=== PATIENT | male | born 1980 | race Caucasian/White ===

== ENCOUNTER 2020-12-18 14:30 | Inpatient (IN) | payer MEDICARE, MEDICAID ==
[~2020-12-18] VITALS: Ht 185.4 cm; Wt 156.5 kg
[2020-12-18] MEDS ORDERED: LASIX40 MG PO (14:41)
[2020-12-18] MEDS ORDERED: COREG6.25 MG PO (14:41)
[2020-12-18] MEDS ORDERED: TENORMIN50 MG PO (14:41)
[2020-12-18] MEDS ORDERED: HYDROCODON-ACE1 EA10 PO (14:42)
[2020-12-18] MEDS ORDERED: GABAPENTIN300 MG PO (14:42)
[2020-12-18] MEDS ORDERED: LANTUS INS100 UNITS/ SC (14:43)
[2020-12-18] MEDS ORDERED: ELIQUIS5 MG PO (14:43)
[2020-12-18] MEDS ORDERED: NOVOLOG100 UNIT/1 SC (14:43)
[2020-12-18] MEDS ORDERED: CYCLOBENZAPRINE10 MG PO (14:44)
[2020-12-18] MEDS ORDERED: GLIPIZIDE10 MG PO (14:44)
[2020-12-18 15:04] LABS: BASOPHILS 0.2 % (0-2); EOSINOPHILS 1.6 % (0-7); HEMATOCRIT 39.1 % (42.0-54.0); HEMOGLOBIN 13.1 g/dL (13.5-17.5); IMMATURE GRANULOCYTES 0.4 % (0-5); LYMPHOCYTE ABS# 1.61 10x3/uL (1.32-3.57); LYMPHOCYTES 28.2 % (15-50); MCH 27.6 pg (26.0-34.0); MCHC 33.5 g/dL (31.0-37.0); MCV 82.3 fL (80.0-100.0); MEAN PLATELET VOLUME 10.2 fL (7.4-10.4); MONOCYTES 5.3 % (2-11); NEUTROPHIL ABS# 3.68 10x3/uL (1.78-5.38); NEUTROPHILS 64.3 % (40-80); PLATELET COUNT 146 10x3/uL (130-400); RBC 4.75 10x6/uL (4.20-6.10); RDW 16.3 % (11.5-14.5); WBC 5.7 10x3/uL (4.8-10.8)
[2020-12-18 15:28] LABS: ALBUMIN 3.4 g/dL (3.4-5.0); ALKALINE PHOSPHATASE 93 U/L (30-120); ALT (SGPT) 26 U/L (10-68); BILIRUBIN - TOTAL 1.08 mg/dL (0.2-1.3); CALC OSMOLALITY 279 mosm/kg (275-300); CALCIUM 8.9 mg/dL (8.5-10.1); CARBON DIOXIDE 26.2 mmol/L (21.0-32.0); CHLORIDE - SERUM 99 mmol/L (98-107); CKMB 1.3 U/L (0.0-3.6); CREATINE KINASE 33 UL (21-232); CREATININE - SERUM 0.8 mg/dL (0.6-1.3); GLUCOSE 395 mg/dL (74-106); MAGNESIUM - SERUM 1.8 mg/dL (1.8-2.4); POTASSIUM - SERUM 3.6 mmol/L (3.5-5.1); PRO BNP 347 pg/mL (0-125); PROTEIN - SERUM 7.5 g/dL (6.4-8.2); SODIUM 132 mmol/L (136-145); UREA NITROGEN 9 mg/dL (7-18); eGFR NON AFRICAN AMERICAN > 90 mL/min (90-120)
[2020-12-18 15:35] LABS: TROPONIN-I < 0.017 ng/mL (0.000-0.060)
[2020-12-18 15:36] LABS: APTT 24.2 SECONDS (22.8-39.4); D-DIMER-QUANTITATIVE 0.35 ug/mLFEU (0.20-0.54); INR 1.15 (0.85-1.17); PROTIME 13.6 SECONDS (11.6-15.0)
[2020-12-18 17:28] VITALS: BP 159/75
[2020-12-18 18:15] VITALS: BP 153/72
--- NOTE | 2020-12-18 18:18 | NUR ---
PT ARRIVED AT THIS TIME, AMBULTED TO BED WITHOUT ASSISTANCE. PT AWAKE AND ALERT, PAIN REPORTED TO CHEST. VS OBTAINED. PT ANSWERS QUESTIONS APPROP. NURSE CALLED PHARMACY FOR NITRO SUBLING.
[2020-12-18 18:26] VITALS: BP 175/91
[2020-12-18 21:13] LABS: CKMB 0.5 U/L (0.0-3.6); CREATINE KINASE 27 UL (21-232); TROPONIN-I < 0.017 ng/mL (0.000-0.060)
[2020-12-18 22:37] VITALS: BP 155/76
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
[2020-12-18 23:21] VITALS: BP 175/91; BMI 45.6
[2020-12-19] MEDS ORDERED: NEURONTIN 300300 MG PO (01:58)
[2020-12-19 03:00] VITALS: BP 154/68
[2020-12-19 04:39] LABS: BASOPHILS 0 % (0-2); EOSINOPHILS 1.9 % (0-7); HEMATOCRIT 39.5 % (42.0-54.0); IMMATURE GRANULOCYTES 0.1 % (0-5); LYMPHOCYTES 24.4 % (15-50); MCH 27.5 pg (26.0-34.0); MCHC 32.9 g/dL (31.0-37.0); MCV 83.5 fL (80.0-100.0); MEAN PLATELET VOLUME 11.3 fL (7.4-10.4); MONOCYTES 6.9 % (2-11); NEUTROPHIL ABS# 4.64 10x3/uL (1.78-5.38); NEUTROPHILS 66.7 % (40-80); PLATELET COUNT 176 10x3/uL (130-400); RBC 4.73 10x6/uL (4.20-6.10); RDW 16.4 % (11.5-14.5)
[2020-12-19 05:04] LABS: ALBUMIN 3.4 g/dL (3.4-5.0); ALKALINE PHOSPHATASE 93 U/L (30-120); ALT (SGPT) 30 U/L (10-68); BILIRUBIN - TOTAL 1.24 mg/dL (0.2-1.3); CALC OSMOLALITY 276 mosm/kg (275-300); CALCIUM 8.6 mg/dL (8.5-10.1); CARBON DIOXIDE 26.9 mmol/L (21.0-32.0); CHLORIDE - SERUM 100 mmol/L (98-107); CHOL - HDL RATIO 3.5 ratio (2.3-4.9); CHOLESTEROL, TOTAL 111 mg/dL (0-200); CKMB 0.6 U/L (0.0-3.6); CREATINE KINASE 23 UL (21-232); CREATININE - SERUM 0.6 mg/dL (0.6-1.3); GLUCOSE 230 mg/dL (74-106); HDL CHOLESTEROL 32 mg/dL (32-96); LDL CHOLESTEROL 39 mg/dL (0-100); LDL-HDL RATIO 1.2 ratio (1.5-3.5); MAGNESIUM - SERUM 1.8 mg/dL (1.8-2.4); PHOSPHOROUS 3.4 mg/dL (2.5-4.9); POTASSIUM - SERUM 3.3 mmol/L (3.5-5.1); PROTEIN - SERUM 7.3 g/dL (6.4-8.2); SODIUM 136 mmol/L (136-145); THYROID STIMULATING HORMONE 1.97 uIU/mL (0.36-3.74); TRIGLYCERIDE 202 mg/dL (30-200); TROPONIN-I < 0.017 ng/mL (0.000-0.060); UREA NITROGEN 7 mg/dL (7-18); eGFR NON AFRICAN AMERICAN > 90 mL/min (90-120)
[2020-12-19 07:56] VITALS: BP 165/85
[2020-12-19 10:27] LABS: CKMB 0.3 U/L (0.0-3.6); CREATINE KINASE 23 UL (21-232); TROPONIN-I < 0.017 ng/mL (0.000-0.060)
[2020-12-19 11:23] VITALS: BP 152/80
[2020-12-19 13:27] VITALS: Ht 185.4 cm; Wt 156.5 kg
[2020-12-19 15:28] VITALS: BP 154/86
[2020-12-19 19:11] VITALS: BP 149/76
--- NOTE | 2020-12-19 19:30 | NUR ---
PT IN BED, AAO X 3, RESP EVEN AND UNLABORED, NO DISTRESS NOTED, CL IN REACH, SR UP X 2.
--- NOTE | 2020-12-20 03:20 | NUR ---
I have reviewed this patient and I concur with the Shift Assessment completed by the Licensed Practical Nurse today this shift.
[2020-12-20 03:46] VITALS: BP 144/57
[2020-12-20 05:03] LABS: BASOPHILS 0.2 % (0-2); EOSINOPHILS 1.7 % (0-7); HEMATOCRIT 37.8 % (42.0-54.0); IMMATURE GRANULOCYTES 0.2 % (0-5); LYMPHOCYTE ABS# 1.43 10x3/uL (1.32-3.57); MCH 26.7 pg (26.0-34.0); MCHC 31.7 g/dL (31.0-37.0); MONOCYTES 6.9 % (2-11); NEUTROPHIL ABS# 4.01 10x3/uL (1.78-5.38); PLATELET COUNT 177 10x3/uL (130-400); RDW 16.6 % (11.5-14.5)
[2020-12-20 05:20] LABS: CALCIUM 8.4 mg/dL (8.5-10.1); CHLORIDE - SERUM 99 mmol/L (98-107); CREATININE - SERUM 0.7 mg/dL (0.6-1.3); PHOSPHOROUS 3.9 mg/dL (2.5-4.9); SODIUM 136 mmol/L (136-145); UREA NITROGEN 8 mg/dL (7-18); eGFR NON AFRICAN AMERICAN > 90 mL/min (90-120)
[2020-12-20 05:22] LABS: CALC OSMOLALITY 280 mosm/kg (275-300); GLUCOSE 293 mg/dL (74-106); POTASSIUM - SERUM 3.9 mmol/L (3.5-5.1)
--- NOTE | 2020-12-20 07:30 | NUR ---
PT RECEIVED AWAKE AND ALERT SITTING ON SIDE OF BED. COMPLAINTS OF PAIN TO CHEST. MEDS GIVEN.
[2020-12-20 07:47] VITALS: BP 155/78
[2020-12-20] MEDS ORDERED: PROTONIX40 MG PO (11:10)
[2020-12-20] MEDS ORDERED: CARAFATE1 G PO (11:10)
[2020-12-20 12:14] VITALS: BP 133/62
--- NOTE | 2020-12-20 14:13 | NUR ---
DRESSING APPLIED TO BOTTOM OF RIGHT FOOT AT PT REQUEST. AREA OF SCAB THAT SOMETIMES BLEEDS.
--- NOTE | 2020-12-20 15:23 | NUR ---
PT'S DISCHARGE INSTRUCTIONS REVIEWED AND SIGNED. IV OUT AND TELEMETRY REMOVED.
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
--- NOTE | 2020-12-22 14:33 | EC ---
PATIENT:SULEMA FELIPE DATE OF SERVICE: 12/19/20 SEX: M MEDICAL RECORD: [id number] DATE OF : 78 LOCATION:D.M2 D.211 AGE OF PATIENT: 40 ADMISSION DATE: 12/19/20 REFERRING PHYSICIAN: INTERPRETING PHYSICIAN: SEBASTIAN BETTS MD ECHOCARDIOGRAM REPORT ECHO CHARGES 4 ECHO COMPLETE Date: 12/19/20 CLINICAL DIAGNOSIS: EVALUATE CHF, CARDIOMYOPATHY ECHOCARDIOGRAPHIC MEASUREMENTS (adult normal given) AC root (d.<3.7cm) 3.9 cm LV Septum d (<1.2 cm> 1.3 cm Valve Excursion 1.9 cm LV Septum (systole) 1.7 cm Left Atria (s.<4.0cm> 3.8 cm LVPW d(<1.2cm) 1.7 cm RV (d.<2.3cm) 3.1 cm LVPW (sytole) 2.3 cm LV diastole(<5.6CM) 7.4 cm MV E-F(>70mm/sec) cm LV systole 5.6 cm LVOT Diameter 2.3 cm MV exc.(>10mm) 1.2 cm Est.ejection fraction (50-75%) % DOPPLER: LVIT cm/sec A 62 cm/sec E 66 cm/sec LA cm/sec RVSP 27 mmHg LVOT 91 cm/sec AOP1/2T m/s Asc. Ao 168 cm/sec RVOT 78 cm/sec RA cm/sec PA 96 cm/sec AV Gradient Peak 11.3 mmHg AV Mean 8.4 mmHg AV Area 1.5 cm MV Gradient Peak 3.2 mmHg MV Mean 1.6 mmHg MV Area cm COMMENTS: Tafe Registrar: Vazquez MEDEL Water Attendant: 2 Dr. Lyon TAPE# Pericardial Effusion N DATE OF SERVICE: CLINICAL INDICATION: CHF. INTERPRETATION: Technically difficult study, overall mild global LV contractile dysfunction, ejection fraction approximately 45%. Left atrial chamber appears normal. Right atrium and right ventricular chamber size and function appears normal. Aortic valve not well visualized, but appears normal. No aortic regurgitation or stenosis. Mitral valve appears normal. No mitral regurgitation. Tricuspid valve appears normal. Trace tricuspid regurgitation. ECHOCARDIOGRAM REPORT [id number] SULEMA FELIPE Pulmonic valve is not well visualized. No pulmonary regurgitation. No pericardial effusion visualized. IMPRESSION: Technically difficult study, overall mild global LV contractile dysfunction with ejection fraction of 45%. TRANSINT:[id number] Voice Confirmation ID: [id number] DOCUMENT ID: [id number] SEBASTIAN BETTS MD at 1433 CC: [id number] DICTATION DATE: 12/21/20 1153 DIRECTOR CLINICAL OPERATIONS: 12/21/202033 DIS IN 12/20/20 [facility] [address] [place] [address]
== END 2020-12-20 15:25 | disposition home or self-care (01) | DRG 313 ==
LOC: D.ER 14:30 → D.M2 15:50 → OBSVTIME 15:50 → D.M2 12-19 11:13
PROVIDERS: Family Medicine; ADMIT Emergency Medicine; ATTEND Emergency Medicine
DX: R07.9 Chest pain, unspecified (principal); Z68.42 Body mass index [BMI] 45.0-49.9, adult; I42.9 Cardiomyopathy, unspecified; E66.01 Morbid (severe) obesity due to excess calories; Z79.01 Long term (current) use of anticoagulants; G89.29 Other chronic pain; E11.40 Type 2 diabetes mellitus with diabetic neuropathy, unspecified; E11.65 Type 2 diabetes mellitus with hyperglycemia; I10 Essential (primary) hypertension; M19.90 Unspecified osteoarthritis, unspecified site; D64.9 Anemia, unspecified; I44.7 Left bundle-branch block, unspecified; Z86.16 Personal history of COVID-19; Z86.711 Personal history of pulmonary embolism